=== PATIENT | male | born 1970 | race Caucasian/White ===

== ENCOUNTER 2017-04-13 08:01 | Day surgery (SDC) | payer OTHER ==
[~2017-04-13] VITALS: Ht 175.3 cm; Wt 77.0 kg
[~2017-04-13 08:01] MED LIST: AMIT25TA PO; ASPI-630 PO; ATOR20TA PO; CYCL5TAB PO; FISH OIL PO; HYDROmorphone 2 MG/ML VIAL IV PRN; IV RINGERS,LACTATED 1000ML 1,000 ML IV SCH; LIDOCAINE 1% 1 ML SYRINGE. ID PRN; MORPHINE SULFATE 2 MG/ML DISP.SYRIN. IV PRN; MULT1TAB52 PO; ONDANSETRON PF 4 MG/2 ML VIAL. IV PRN; PROCHLORPERAZINE 10 MG/2 ML VIAL. IV PRN; UBID200C7 PO; VALS80TA3 PO; fentaNYL PF VIAL 100 MCG/2 ML VIAL IV PRN
[2017-04-13] MEDS ORDERED: DEXAMETHASONE SOD PHOS 20 MG/5 ML VIAL. ONE (08:47)
[2017-04-13] MEDS ORDERED: LIDOCAINE 2% PF Vial for OR 5 ML VIAL. ONE (08:47)
[2017-04-13] MEDS ORDERED: MIDAZOLAM HCL/PF 2 MG/2 ML VIAL. ONE (08:47)
[2017-04-13] MEDS ORDERED: PROPOFOL 20 ML IV ONE (08:47)
[2017-04-13] MEDS ORDERED: ONDANSETRON PF 4 MG/2 ML VIAL. ONE (08:47)
[2017-04-13] MEDS ORDERED: FAMOTIDINE 20 MG/2 ML VIAL ONE (08:47)
[2017-04-13] MEDS ORDERED: fentaNYL PF VIAL 100 MCG/2 ML VIAL ONE (08:47)
[2017-04-13] MEDS ORDERED: BUPIVACAINE MPF 0.5% 30 ML VIAL. ONE (09:05)
[2017-04-13] MEDS ORDERED: ePHEDrine PF IN SALINE 50 MG/5 ML DISP.SYRIN IV ONE (09:33)
[2017-04-13] MEDS ORDERED: SEVOFLURANE 31 TO 60 MINUTES. IH ONE (09:38)
[2017-04-13] MEDS ORDERED: HYDR-2762 PO (10:30)
--- NOTE | 2017-04-13 10:34 | DISCH ---
DISCHARGE INSTRUCTIONS Condition on Discharge Condition on Discharge: Stable Activity After Discharge Activity Instructions for Disc: Other, see below Other activity instructions: avoid hard grasp, fine motor use with right hand only Diet after Discharge Diet after Discharge: Regular Wound Incision Care Wound/Incision Care: Ice to area for comfort, Keep wound elevated Other wound/incision instructi: may change dressing in 3 days, okay to get wet in shower at that time Contacting the [facility] after DC Call your doctor for: Concerns you may have Follow-Up Follow up with: Dr. Wei 1 week ISAÍAS WEI MD Apr 13, 2017 10:34
[2017-04-13] MEDS ORDERED: HYDR-965 PO (10:35)
[2017-04-13 10:39] VITALS: BP 128/68
--- NOTE | 2017-04-16 13:35 | PATHOLOGY ---
PATHOLOGY REPORT * * * * * * * * FINAL DIAGNOSIS: Dense and loose fibroconnective tissue, palm mass right hand: - Focal fibromatosis, consistent with Dupuytren's contracture. (JPM:mm; 04/16/2017) REPORT ELECTRONICALLY SIGNED BY: Spencer Shelton M.D. DATE/TIME: 04/16/2017 13:35 * * * * * * * * GROSS PATHOLOGY: Received in formalin, labeled "Michael Matias, mass palm, right hand" and consists of a roughened, irregular, rubber segment of milky white soft tissue, measuring 1.2 x 0.8 x 0.5 cm. This is bisected and submitted entirely in cassette A1. (JPM; 04/13/17) INITIAL CPT CODE(S): 89969 Professional services performed by [facility] [place] [address] Technical services performed by [facility] at [address] [place] [address]. SPECIMEN(S) RECEIVED: A.Mass palm, right hand CLINICAL HISTORY: Mass right hand PATIENT: MICHAEL MATIAS /AGE: 603/16/1970 (Age: 47) PATIENT #: [id number] ALT CASE #: SPECIMEN COLLECTION DATE: 04/13/2017 SPECIMEN RECEIVED DATE: 04/13/2017 [facility] - [address] [place] [address] - PHONE: [phone] * * * END OF REPORT * * *
--- NOTE | 2017-04-19 00:13 | OP ---
DATE OF SURGERY: 04/13/2017 PREOPERATIVE DIAGNOSIS: Mass, palm of right hand. POSTOPERATIVE DIAGNOSIS: Mass, palm of right hand. PROCEDURE: Excision of mass, palm of right hand. SURGEON: Madi Wei MD ANESTHESIA: General. ESTIMATED BLOOD LOSS: Less than 5 mL. COMPLICATIONS: None. OPERATIVE INDICATIONS: The patient is a 47-year-old male with a slowly enlarging, sometimes painful mass in the palm of his right hand, worse on yarn dumper. He had actually had it evaluated by a general surgeon who is doing some earlier procedures with removal of multiple lipomas, but the surgeon was concerned that it involved his tendon. I told him that it did not appear to involve the tendon itself as it was really not freely movable and certainly did not move with manipulation of the associated ring finger where it was most closely located. It appeared to be superficial to the tendon sheath and centrally located, did not appear to be ____, for example, with typical Dupuytren's contracture nor did he have any findings on the contralateral hand. I had gone over with him the possibility of excision as he preferred that. We talked about sending the mass off to pathology for evaluation, although there is relatively low clinical suspicion of any type of malignancy. I always want to evaluate for that. We also talked about the possibility of nerve or blood vessel damage, continued pain, medical or other anesthetic complications among others. All his questions were answered. Consent was obtained and he agrees to proceed with surgical evaluation and treatment. OPERATIVE TECHNIQUE: The patient was identified, procedure verified, patient placed in supine position on the operating table. After adequate amounts of general anesthesia were administered, a tourniquet was placed on the right upper extremity and right upper extremity was exsanguinated via Esmarch bandage. Tourniquet inflated to 250 mmHg. An incision was made at the distal palmar crease area over the area of the mass. This again appeared to be directly over the tendon sheath ____. No movement whatsoever with motion at the tendons. The distal neurovascular bundles were protected and the mass was excised en bloc along with the volar aspect of the tendon sheath. It did not really involved the A1 eduardo area and on excision, the tendons were noted to be intact both profundus and superficialis. There was no involvement of the tendon itself whatsoever and no triggering present at the A1 eduardo, which was left intact. The mass appeared solid, not cystic in nature and was sent for permanent section pathological evaluation. Tourniquet was let down, bleeding points were controlled by electrocautery. Thorough irrigation carried out with normal saline solution and closure of approximately 2 cm incision was made with vertical mattress sutures, nylon, sterile dressings were applied. The patient was returned to recovery room in stable condition having tolerated the procedure well. Fingers were noted to be warm and pink following deflation of the tourniquet. MADI WEI MD DR: SCARLETT/cristofer JOB#: [id number] / [id number] OTTONIEL Garber DO
== END 2017-04-13 11:08 | disposition home or self-care (01) ==
LOC: SURG 08:01
PROVIDERS: ATTEND Orthopaedic Surgery
DX: M79.89 Other specified soft tissue disorders (principal); E78.00 Pure hypercholesterolemia, unspecified; I10 Essential (primary) hypertension; Z87.39 Personal history of other diseases of the musculoskeletal system and connective tissue; Z86.39 Personal history of other endocrine, nutritional and metabolic disease; Z72.89 Other problems related to lifestyle
CPT/HCPCS: 26115; 88304; J0690; J1100; J2001; J2250; J2405; J2704; J3010; J3490; S0028